=== PATIENT | female | born 1990 | race Caucasian/White ===

== ENCOUNTER 2016-09-09 18:08 | Emergency (ER) | payer OTHER ==
--- NOTE | 2016-09-09 18:15 | UC ---
Back Pain HPI - HPI Summary HPI Summary: 25 female presents with complaints of lower back pain that began yesterday upon waking up. Patient states she sat up and was unable to get out of bed due to the pain in her low back. States it is a sharp ache. She has been taking ibuprofen for pain without much relief. States sometimes she has numbness/ tingling in her anterior thighs but denies saddle anesthesia, weakness and numbness/tingling in lower legs. No bladder/bowel incontinence. No abdominal pain, chest pain or difficulty breathing. 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 Denies known trauma or injury. No UTI symptoms. No other PMHx. Able to bear weight and walk, however yesterday it was much more difficult. - History of Current Complaint Stated Complaint: LOWER BACK PAIN Time Seen by Provider: 09/09/16 18:11 Hx Obtained From: Patient ?: No Onset/Duration: Sudden Onset, Lasting Days, Still Present - improved somewhat Severity Initially: Severe Severity Currently: Moderate Pain Intensity: 8 Pain Scale Used: 0-10 Numeric Back Pain: Is Discrete @ - lower lumbar spine L1-L3, paraspinal muscles Character: Aching, Throbbing, Stiffness Aggravating: Movement Alleviating: Rest Associated Signs And Symptoms: Positive: Numbness, Tingling - intermittently, anterior thighs only, Pain with Weight Bearing - resolved. Negative: Swelling, Redness, Fever, Flank Pain, Bladder Incontinence, Bowel Incontinence - Risk Factors AAA Risk Factors: Negative TAD Risk Factors: Negative Cauda Equina Risk Factors: Negative Epidural Abscess Risk Factors: Negative - Allergies/Home Medications Allergies/Adverse Reactions: Allergies Allergy/AdvReac Type Severity Reaction Status Date / Time No Known Allergies Allergy Verified 09/09/16 18:18 Home Medications: Home Medications Ibuprofen [Ibuprofen 200 MG] 600 mg PO Q4HR PRN 09/09/16 [History Confirmed ] PMH/Surg Hx/FS Hx/Imm Hx - Additional Past Medical History Additional PMH: denies pmhx. no diabetes, htn or asthma. - Surgical History Surgical History: None - Family History Known Family History: Positive: None - Social History Alcohol Use: Occasionally Smoking Status (MU): Current Every Day Smoker - Immunization History Vaccination Up to Date: Yes Review of Systems Constitutional: Negative Skin: Negative Respiratory: Negative Cardiovascular: Negative Gastrointestinal: Negative Neurovascular: Negative Musculoskeletal: Arthralgia, Decreased ROM - low back, Myalgia Neurological: Paresthesia - anterior thighs, intermittently, resolved All Other Systems Reviewed And Are Negative: Yes Physical Exam Triage Information Reviewed: Yes Appearance: Well-Appearing, No Pain Distress, Well-Nourished Vital Signs: temp: 98.7 HR: 91 Resp: 16 BP: 144/100 O2: 100 Bp elevated and taken as soon as sat in room. told to have rechecked by PCP within 2 weeks Vital Signs Reviewed: Yes Eyes: Positive: Conjunctiva Clear Neck: Positive: Supple, Nontender Respiratory: Positive: Chest non-tender, Lungs clear, Normal breath sounds, No respiratory distress, No accessory muscle use. Negative: Decreased breath sounds, Rhonchi Cardiovascular: Positive: RRR, No Murmur, Pulses Normal - 2+ pedal b/l, Brisk Capillary Refill Abdomen Description: Positive: Nontender, No Organomegaly, Soft. Negative: Bruit, Peritoneal Signs, Pulsatile Mass Bowel Sounds: Positive: Present Musculoskeletal: Positive: Strength Intact, No Edema, ROM Limited @ - with flexion/extension and twisting of back., Other: - pain with flexion and extension of back. tenderness on palpation of paravertebral muscles b/l at level L1-L3. no ecchymosis, edema or obvious deformity noted. Neurological: Positive: Alert - sensation intact, Muscle Tone Normal Psychological Exam: Normal Skin Exam: Normal Back Pain Course/Dx - Course Course Of Treatment: due to patients JOANIE, PE and HPI did not feel x-ray was necessary at this time. no known trauma. appears to be experiencing a muscle strain. NSAIDs, prednisone and flexeril. Rest, heat/ice and follow up. Aware of worsening signs and symptoms. No concern for cauda equina or emergent lower back etiologies at this time. - Differential Dx/Diagnosis Differential Diagnosis/HQI/PQRI: Herniated Disc, Strain, Sprain Provider Diagnoses: low back strain Discharge - Discharge Plan Condition: Stable Disposition: HOME Prescriptions: Cyclobenzaprine TAB* [Flexeril 10 MG TAB*] 10 mg PO BEDTIME #10 tab Naproxen TAB* [Naprosyn 375 mg TAB*] 375 mg PO BID #25 tab predniSONE TAB* [Deltasone TAB*] 20 mg PO DAILY #3 tab Patient Education Materials: Low Back Strain (ED) Forms: *Work Release Referrals: [facility] [place] [facility] [Outside] Additional Instructions: Take medications as prescribed. Follow up with PCP to ensure improvement also to re-check BP within 2 weeks due to high reading. Continue heat, ice and massage. Rest and do not participate in lifting or strenuous activity until symptoms improve.
[2016-09-09 18:19] VITALS: BP 144/100
== END 2016-09-09 18:25 | disposition home or self-care (01) ==
LOC: UCCORT 18:08
DX: S39.012A Strain of muscle, fascia and tendon of lower back, initial encounter (principal); X58.XXXA Exposure to other specified factors, initial encounter; Y93.9 Activity, unspecified; Y92.9 Unspecified place or not applicable; R20.0 Anesthesia of skin; R20.2 Paresthesia of skin; F17.210 Nicotine dependence, cigarettes, uncomplicated
CPT/HCPCS: 99202; G0463

== ENCOUNTER 2018-06-17 19:24 | Emergency (ER) | payer BC, OTHER ==
[2018-06-17 19:50] VITALS: BP 119/72
--- NOTE | 2018-06-17 20:07 | UC ---
Back Pain HPI - HPI Summary HPI Summary: Pt c/o sudden onset of low back pain that came after attempting to lift a large fish tank yesterday evening. Pt has hx of low back strain. Denies loss of bowel or bladder control, no saddle anesthesia, no radiating pain or numbness of tingling in lower extremities. - History of Current Complaint Chief Complaint: UCBackPain Stated Complaint: LOWER BACK PAIN Time Seen by Provider: 06/17/18 20:00 Hx Obtained From: Patient Hx Last Menstrual Period: 06/16/18 ?: No Onset/Duration: Sudden Onset, Still Present Timing: Intermittent Severity Initially: Mild Severity Currently: Mild Pain Intensity: 5 Back Pain: Is Diffuse - low back Character: Dull, Aching, Stiffness Aggravating Factor(s): Movement, Lifting Alleviating Factor(s): Rest, Position Associated Signs And Symptoms: Positive: Negative Related History: Similar Episode Dx As - low back strain - Risk Factors AAA Risk Factors: Negative TAD Risk Factors: Negative Cauda Equina Risk Factors: Negative Epidural Abscess Risk Factors: Negative - Allergies/Home Medications Allergies/Adverse Reactions: Allergies Allergy/AdvReac Type Severity Reaction Status Date / Time No Known Allergies Allergy Verified 06/17/18 19:46 Home Medications: Home Medications Aspirin/Acetaminophen/Caffeine [Excedrin Extra Strength Caplet] 1 each PO ONCE PRN 06/17/18 [History Confirmed 06/17/18] PMH/Surg Hx/FS Hx/Imm Hx Previously Healthy: Yes - Surgical History Surgical History: None - Family History Known Family History: Positive: Cardiac Disease - Social History Occupation: Employed Full-time Lives: With Family Alcohol Use: Occasionally Substance Use Type: None Smoking Status (MU): Current Every Day Smoker Type: Cigarettes Amount Used/How Often: 1/3 PPD Length of Time of Smoking/Using Tobacco: since 2014 Have You Smoked in the Last Year: Yes - Immunization History Vaccination Up to Date: Yes Review of Systems All Other Systems Reviewed And Are Negative: Yes Constitutional: Positive: Negative Skin: Positive: Negative Eyes: Positive: Negative ENT: Positive: Negative Respiratory: Positive: Negative Cardiovascular: Positive: Negative Gastrointestinal: Positive: Negative Genitourinary: Positive: Negative Motor: Positive: Negative Neurovascular: Positive: Negative Musculoskeletal: Positive: Myalgia - low back Neurological: Positive: Negative Psychological: Positive: Negative Is Patient Immunocompromised?: No Physical Exam Triage Information Reviewed: Yes Appearance: Well-Appearing, Obese Vital Signs: Initial Vital Signs Temp 99.6 F 06/17/18 19:42 Pulse 86 06/17/18 19:42 Resp 17 06/17/18 19:42 BP 119/72 06/17/18 19:42 Pulse Ox 97 06/17/18 19:42 Vital Signs Reviewed: Yes Eye Exam: Normal ENT Exam: Normal Dental Exam: Normal Neck exam: Normal Respiratory Exam: Normal Cardiovascular Exam: Normal Musculoskeletal Exam: Normal Musculoskeletal: Positive: Strength Intact, ROM Intact Neurological Exam: Normal Psychological Exam: Normal Skin Exam: Normal Back Pain Course/Dx - Differential Dx/Diagnosis Differential Diagnosis/HQI/PQRI: Strain, Sprain Provider Diagnosis: Low back strain Discharge - Sign-Out/Discharge Documenting (check all that apply): Patient Departure All imaging exams completed and their final reports reviewed: No Studies - Discharge Plan Condition: Stable Disposition: HOME Patient Education Materials: Low Back Strain (ED), Core Strengthening Exercises (GEN), Safe Use of NSAIDs (ED), Lower Back Exercises (ED) Referrals: Manan Cisneros MD [Primary Care Provider] - If Needed - Billing Disposition and Condition Condition: STABLE Disposition: Home - Attestation Statements Provider Attestation: I was available for consult. This patient was seen by the [place]. The patient was not presented to, seen by, or examined by me. -Ruth
== END 2018-06-17 20:16 | disposition home or self-care (01) ==
LOC: UCCORT 19:24
DX: S39.012A Strain of muscle, fascia and tendon of lower back, initial encounter (principal); F17.210 Nicotine dependence, cigarettes, uncomplicated; X58.XXXA Exposure to other specified factors, initial encounter; Y92.9 Unspecified place or not applicable
CPT/HCPCS: 99211; G0463